=== PATIENT | female | born 1985 | race Caucasian/White ===

== ENCOUNTER 2016-04-12 07:29 | Emergency (ER) | payer SELFPAY ==
[~2016-04-12] VITALS: Ht 162.6 cm; Wt 54.9 kg
--- NOTE | 2016-04-12 09:19 | Emergency Room Report ---
History of Present Illness General Chief Complaint: Abdominal Pain Source: Patient Present Illness HPI 30 YO F with 5 days generalized abd pain. No nausea/vomiting. 1x episode diarrhea this morning. History of celiac. S/p appendectomy "long time ago." States pain "different from celiac." Didnt take any OTC meds. Refusing meds here, asking only for "ice" or "herbal supplements" in the ED. Denies other medical problems. Denies urinary complaints. Allergies: Coded Allergies: IBUPROFEN (Verified Allergy, Severe, vertigo, fever, 04/12/16) CORTISONE (Verified Allergy, Unknown, 04/12/16) Patient History Past Medical History: other - celiace Past Surgical History: appy Pertinent Family History: none Social History: Denies: alcohol use, drug use, smoking Last Menstrual Period: one month Now: No Immunizations: UTD Reviewed Nursing Documentation: PMH: Agreed, PSxH: Agreed Nursing Documentation-PMH Past Medical History: No History, Except For Review of Systems All Other Systems: negative except mentioned in HPI Physical Exam Vital Signs Date Time Temp Pulse Resp B/P Pulse Ox O2 Delivery O2 Flow Rate FiO2 04/12/16 07:37 98.1 72 18 114/77 99 Room Air Sp02 EP Interpretation: reviewed, normal General Appearance: normal inspection, well appearing, no apparent distress, alert Head: atraumatic Eyes: bilateral eye EOMI, bilateral eye PERRL ENT: normal ENT inspection, hearing grossly normal, normal voice Neck: normal inspection, full range of motion, supple, no bony tend Respiratory: normal inspection, lungs clear, normal breath sounds, no respiratory distress, no retraction, no wheezing Gastrointestinal: normal inspection, normal bowel sounds, non tender, soft, no guarding, no hernia, other - hyperasthesia to any palpation Genitourinary: no CVA tenderness Musculoskeletal: normal inspection, back normal, normal range of motion, Jane' s Sign negative Neurologic: normal inspection, alert, oriented x3, responsive, absorber operator III-XII nml as tested, motor strength/tone normal, speech normal Psychiatric: normal inspection, judgement/insight normal, mood/affect normal Skin: normal inspection, normal color, no rash Medical Decision Making Diagnostic Impression: Primary Impression: Abdominal pain Qualified Codes: R10.84 - Generalized abdominal pain ER Course Generalized abd pain. VSS. Afebrile. Unreliable physical exam Will check UA, basic labs and reassess Reevaluation Time: 14:04 Last Vital Signs Date Time Temp Pulse Resp B/P Pulse Ox O2 Delivery O2 Flow Rate FiO2 04/12/16 07:37 98.1 72 18 114/77 99 Room Air Status: improved Reevaluation Impression Labs: Leuks 11k. H&H stable. UA no UTI. No metabolic derangement Urine preg negative Patient signed out AMA before I could give her above results She also refused analgesia here Patient is clinically sober, is free from from distracting injury, and has intact judgement and capacity to decide to leave against medical advice. Patient came in with generalized abd pain. Patient verbalized understanding of my concern and my need to possibly do CT imaging of abdomen Patient does not want to wait for result of UA or Labs I explained to patient the risks of leaving AMA and patient informed that if they she leaves, she could get worse, she could become become critically ill, possibly become disabled or . Patient verbalized back to me understanding of these risks but still wants to leave. -- Disposition: AGAINST MEDICAL ADVICE Referrals: NOT CHOSEN BREA/,REFERRING (PCP) ROBERTO SOLITARIO M.D. Apr 12, 2016 09:19
[2016-04-12 09:39] LABS: APPEARANCE,URINE CLEAR; KETONES,URINE 1+ (NEGATIVE); LEUKOCYTE ESTERASE ,URINE 1+ (NEGATIVE); NITRITE,URINE NEGATIVE (NEGATIVE); PH,URINE 5 (4.5-8.0); PROTEIN,URINE 1+ (NEGATIVE); UROBILINOGEN,URINE NORMAL MG/DL (0.0-1.0)
[2016-04-12 09:40] VITALS: BP 114/77
[2016-04-12 09:57] LABS: BACTERIA,URINE FEW /HPF; RBC,URINE 0-2 /HPF (0 - 2); SQUAMOUS EPITHELIAL CELL,UR FEW /LPF (NONE/OCC)
[2016-04-12 10:05] LABS: BASOPHILS % (AUTO) 0.7 % (0.0-2.0); EOSINOPHILS % (AUTO) 0.4 % (0.0-3.0); LYMPHOCYTES % (AUTO) 9.2 % (20.0-45.0); MEAN CORPUSCULAR HEMOGLOBIN 30.6 PG (27.0-31.0); MEAN CORPUSCULAR HGB CONC 33.4 G/DL (32.0-36.0); MEAN CORPUSCULAR VOLUME 92 FL (80-99); MEAN PLATELET VOLUME 7.1 FL (6.5-10.1); MONOCYTES % (AUTO) 6.2 % (1.0-10.0); NEUTROPHILS % (AUTO) 83.6 % (45.0-75.0); PLATELET COUNT 308 K/UL (150-450); RED BLOOD COUNT 3.83 M/UL (4.20-5.40)
[2016-04-12 10:07] VITALS: BP 114/77
[2016-04-12 10:19] LABS: ALANINE AMINOTRANSFERASE 9 U/L (3-33); ALBUMIN/GLOBULIN RATIO 0.8 (1.0-2.7); ANION GAP 17 (5-15); ASPARTATE AMINO TRANSFERASE 13 U/L (5-40); CALCIUM 9.5 mg/dL (8.6-10.2); CARBON DIOXIDE 24 mEQ/L (20-30); CHLORIDE 96 mEQ/L (98-107); CREATININE 0.7 mg/dL (0.5-0.9); GLOMERULAR FILTRATION RATE > 60 mL/min (>60); HEMOLYSIS 0; LIPASE 19 U/L (< 60); POTASSIUM 4.3 mEQ/L (3.4-4.9); SODIUM 137 mEQ/L (135-145); TOTAL PROTEIN 7.7 g/dL (6.6-8.7)
== END 2016-04-12 10:07 | disposition left against medical advice (07) ==
LOC: EMR 08:37
DX: R10.84 Generalized abdominal pain (principal); Z90.89 Acquired absence of other organs; Z88.6 Allergy status to analgesic agent; Z88.8 Allergy status to other drugs, medicaments and biological substances
CPT/HCPCS: 36415; 80053; 81003; 81025; 83690; 85025; 99282